=== PATIENT | female | born 1990 | race Caucasian/White ===

== ENCOUNTER → 2020-09-01 | Day surgery (SDC) | payer OTHER ==
[~2020-09-01] MED LIST: ACETAMINOPHEN500 M1 PO; CENTRUM ADULTS1 EACH PO; MOTRIN600 MG PO
[2020-09-01 10:35] LABS: HCG (URINE) SCREEN NEGATIVE (NEGATIVE)
== END | disposition home or self-care (01) ==
LOC: FAS 10:03
PROVIDERS: Anesthesiology
DX: Z45.2 Encounter for adjustment and management of vascular access device (principal); Z90.13 Acquired absence of bilateral breasts and nipples; Z83.3 Family history of diabetes mellitus; Z80.8 Family history of malignant neoplasm of other organs or systems; Z95.828 Presence of other vascular implants and grafts; Z20.822 Contact with and (suspected) exposure to COVID-19; Z85.3 Personal history of malignant neoplasm of breast
CPT/HCPCS: 84703; J0690; J2250; J2405; J2704; J3010; J7120